=== PATIENT | female | born 1985 | race Caucasian/White ===

== ENCOUNTER 2020-06-25 08:35 | Day surgery (SDC) | payer OTHER ==
[~2020-06-25] VITALS: Ht 162.6 cm; Wt 65.5 kg
[~2020-06-25 08:35] MED LIST: OXYACE5T PO
--- NOTE | 2020-06-25 11:18 | NUR ---
06/25/20 [place]8 Sydney Quiros 1 TRY RIGHT HAND BLEW
== END 2020-06-25 12:30 | disposition home or self-care (01) ==
LOC: ORSCSDS 08:35
PROVIDERS: Internal Medicine Gastroenterology
PROC: 0DBE8ZX Excision of Large Intestine, Via Natural or Artificial Opening Endoscopic, Diagnostic (ICD-10-PCS; principal; 2020-06-25 10:00)
PROC: 0DBM8ZX Excision of Descending Colon, Via Natural or Artificial Opening Endoscopic, Diagnostic (ICD-10-PCS; principal; 2020-06-25 10:00)
DX: R10.32 Left lower quadrant pain (principal); K63.5 Polyp of colon; R19.4 Change in bowel habit; K64.1 Second degree hemorrhoids; Z87.19 Personal history of other diseases of the digestive system; J45.909 Unspecified asthma, uncomplicated; Z79.899 Other long term (current) drug therapy
CPT/HCPCS: 88305; J2250; J2704; J7120